=== PATIENT | male | born 1955 | race Caucasian/White ===

== ENCOUNTER → 2017-03-08 | Outpatient (CLI) | payer MEDICARE, MEDICAID ==
[~2017-03-08] MED LIST: ALBUTEROL-200 PUFFS/ IH; ALPRAZOLAM2 MG PO; ASPIRIN CHILDRE81 MG PO; CLONAZEPAM 1MG T1 MG PO; COMBIVENT1 ARO IH; DOXAZOSIN 4MG TA4 MG PO; DOXAZOSIN MESYLA1 MG PO; FIORICET1 CAP PO; FLEXERIL10 M1 PO; FLEXERIL10 MG PO; GABAPENTIN300 MG PO; KEFLEX500 M1 PO; LISINOPRIL 20MG20 MG PO; LORTAB 5/500 501 TAB PO; MEDROL 4MG. DOSE4 MG PO; NORCO 325 MG-51 TAB PO; PERCOCET 5/3251 EACH PO; PHENERGAN VC +120 ML PO; PROVENTIL0.09 MG/A1 IH; SEPTRA DS 800 M1 TAB PO; SERTRALINE100 MG PO; TRAZODONE 50MG50 MG PO; VICODIN 5/500 T1 TAB PO; VOLTAREN75 MG PO; ZITHROMAX Z PA250 MG PO
[2017-03-08 17:06] LABS: AMPHETAMINES/METAMPHETAMINES NEGATIVE ng/mL (<1000)
== END ==
LOC: LAB 14:45
PROVIDERS: Emergency Medicine
DX: Z79.899 Other long term (current) drug therapy (principal)

== ENCOUNTER → 2017-03-31 | Outpatient (CLI) | payer MEDICARE, MEDICAID ==
[2017-03-31 19:13] LABS: AMPHETAMINES/METAMPHETAMINES NEGATIVE ng/mL (<1000)
== END ==
LOC: LAB 17:20
PROVIDERS: Emergency Medicine
DX: Z79.899 Other long term (current) drug therapy (principal)